=== PATIENT | female | born 1950 | race Caucasian/White ===

== ENCOUNTER 2016-06-05 19:44 | Emergency (ER) | payer MEDICARE, OTHER ==
[~2016-06-05 19:44] MED LIST: ADVAIR250 INH; ALA-CORT1 % EX; ALAVERT10 MG PO; ANALPRAM HC 1-230 GM PR; ANUSOL HC SUPP1 SUPP PR; ANUSOL-HC25 MG PR; ANUSOL-HC25 MG RE; ART2 PO; ASAB PO; ASPER-FLEX10 % EX; ASPERCREME TOP; ATV1 PO; AUG500 PO; B121000P IM; BENTYL10 PO; BISR PR; BONIVA150 MG PO; CALTRA600D PO; CANNOT RECALL; CARASPUDL PO; CELEXA10 PO; CELEXA40 MG PO; CEPACOL SORE MT; CHLORASEPTIC1.4 % MT; CIP5 PO; CLARIT10 PO; COG0.5 PO; COZ50 PO; CYANO1000T PO; DSS PO; DUONEB INH; FERROUS SULF325 M1 PO; FLONASE NAS; GAS-X80 MG PO; GGEXPSF PO; GLUCOSE GEL; GLUCOTROL5 PO; GLUTOSE GEL PO; H1 PO; H2 PO; H5 PO; HALDOL.5 PO; HYDROCHLOROT12.5 MG PO; HYDROCORTISONE RE; IMITREX25 PO; JANUVIA100 MG PO; KDUR20 PO; KLONO1 PO; KLONO5 PO; KLOR-CON M1010 MEQ PO; LAMICTAL10 PO; LAMICTAL25 PO; LATUDA40 MG PO; LATUDA60 MG PO; LATUDA80 MG PO; LEXAPRO20 PO; LIDODERM T; LIPITOR40 PO; LIQUITEARS OPH; LOP25 PO; LORTAB 5 PO; LYRICA25 PO; LYRICA50 PO; LYRICA75 PO; MAGOX4 PO; MCZ125 PO; MELA3 PO; MIRALAXPKT PO; MUCINEX1200 MG PO; MUCINEX600 MG PO; MULTIVIT/MIN PO; MULTIVITAMI1 PO; MUSCLE RU3 TOP; MUSCLE RUB; MYLICON 80 MG T80 MG PO; MYLUD PO; MYTAB GAS80 MG PO; NASAL MOIST0.65 % NAS; NASONEX NAS; NATURA2; NEUR100 PO; NEUR300 PO; NEUR600 PO; NEXIUM20 M1 PO; NEXIUM40 PO; NITROSTAT0.4 MG SL; NIZORSHAM TOP; NORCO1 TA1 PO; OXYCOD PO; PATANOL OPH; PR12.5 PO; PRAMOXINE RE; PREMARIN PO; PROAIR HFA INH; PROVIGIL1 PO; REG5 PO; REMERON30 MG PO; REMERON45 MG PO; SALINE NASAL SPRAY; SENN PO; SENOKOTS PO; SENTAB PO; SEROQUEL1C PO; SINGULAIR1 PO; SORE THROAT PO; SPIRIVA INH; SYMBICORT 80/4.1 INH INH; SYSTANE OPH; SYSTANE ULTR OPH; T PO; TESS PO; THERMACARE; TRIHEXYPHENIDYL 5 MG PO; TRILEP150 PO; TRILEP300 PO; TUCKS; TUCKS TOP; TUMSROLL PO; VENTOLIN HFA INH; VITAMIN D31000 UNIT PO; VOLTAREN1 % TOP; ZANTAC150 MG PO; ZESTRIL20 MG PO; ZOFRAN4 PO; [UNRECOGNIZED DRUG - OTHER]; [UNRECOGNIZED DRUG - OTHER]; [UNRECOGNIZED DRUG - OTHER]; [UNRECOGNIZED DRUG - OTHER] PO; [UNRECOGNIZED DRUG - REMARK]; [UNRECOGNIZED DRUG - SUPPLY]; [UNRECOGNIZED DRUG - SUPPLY]
[2016-06-05 20:36] LABS: BASOPHILS ABSOLUTE 0.04 10/3/uL (0.0-0.16); EOSINOPHILS 3.4 %; EOSINOPHILS ABSOLUTE 0.13 10/3/uL (0.0-0.53); HEMATOCRIT 32.3 % (36.0-48.0); HEMOGLOBIN 11.5 g/dL (12.0-16.0); IMMATURE GRANULOCYTES 0.3 %; IMMATURE GRANULOCYTES ABSOLUTE 0.01 10/3/uL (0.0-0.11); LYMPHOCYTES 37.4 %; LYMPHOCYTES ABSOLUTE 1.43 10/3/uL (0.67-4.30); MEAN CORPUS HGB CONC 35.6 g/dL (32.0-36.0); MEAN CORPUSCULAR HEMOGLOB 32.1 pg (26.0-34.0); MEAN CORPUSCULAR VOLUME 90.2 fL (80-100); MEAN PLATELET VOLUME 12.3 fL (9.2-13.0); MONOCYTES 13.4 %; MONOCYTES ABSOLUTE 0.51 10/3/uL (0.21-1.20); NEUTROPHILS 44.5 %; PLATELET COUNT 63 10/3/uL (150-400); RBC DISTRIBUTION WIDTH 13.1 % (12.0-16.0); RED CELL COUNT 3.58 10/6/uL (4.0-5.6); WHITE BLOOD CELLS 3.8 10/3/uL (4.5-10.5)
[2016-06-05 20:38] LABS: MANUAL DIFF NO %
[2016-06-05 20:54] LABS: A/G RATIO 0.6 (0.7-1.9); ALBUMIN 2.8 G/DL (3.5-5.0); BUN (BLOOD UREA NITROGEN) 9 MG/DL (6-23); CALCIUM, SERUM 8.5 MG/DL (8.5-10.4); CHLORIDE, SERUM 99 MMOL/L (96-112); CO2 (CARBON DIOXIDE) 27 MMOL/L (24-34); CREATININE 0.83 MG/DL (0.55-1.02); GFR AFRICAN AMERICAN 86 ML/MIN (>=60); GFR NON AFRICAN AMERICAN 75 ML/MIN (>=60); GLOBULIN 4.4 G/DL (2.5-4.1); GLUCOSE, SERUM 193 MG/DL (60-99); POTASSIUM, SERUM 3.9 MMOL/L (3.5-5.3); SGOT(AST) 79 U/L (5-40); SGPT(ALT) 93 U/L (5-65); SODIUM, SERUM 136 MMOL/L (135-148); TOTAL BILIRUBIN 0.4 MG/DL (0-1.2); TOTAL PROTEIN 7.2 G/DL (6.0-8.5); TROPONIN I <0.02 NG/ML (<0.05)
[2016-06-05 20:55] LABS: ALKALINE PHOSPHATASE 208 U/L (45-117)
[2016-06-05 21:00] LABS: PLATELET ESTIMATE DEC (ADEQUATE); RBC MORPHOLOGY NORM (NORMAL)
[2016-06-05 22:02] LABS: ASCORBIC ACID (UR NOT ORDER) NEG (NEG); BILIRUBIN, URINE NEGATIVE (NEG); ER URINALYSIS TAT 0 Hrs 10 Mins; KETONE, URINE NEGATIVE (NEG); LEUKOCYTE ESTERASE(NOT OR NEG (NEG); NITRITE (URINE) NEG (NEG); WBC (NOT ORDERED) (RFLEX) < 1 (0-5)
== END 2016-06-05 23:30 | disposition home or self-care (01) ==
LOC: ER 19:44
PROVIDERS: Nurse Practitioner Acute Care
DX: K85.90 Acute pancreatitis without necrosis or infection, unspecified (principal); F41.9 Anxiety disorder, unspecified; Z87.891 Personal history of nicotine dependence; J44.9 Chronic obstructive pulmonary disease, unspecified; I10 Essential (primary) hypertension; K21.9 Gastro-esophageal reflux disease without esophagitis; E11.9 Type 2 diabetes mellitus without complications; Z88.5 Allergy status to narcotic agent; Z79.82 Long term (current) use of aspirin; Z91.040 Latex allergy status; Z88.8 Allergy status to other drugs, medicaments and biological substances; Z79.899 Other long term (current) drug therapy
CPT/HCPCS: 70450; 80053; 81001; 83690; 84484; 85025; 99285; A9270-GY